=== PATIENT | male | born 1970 ===

== ENCOUNTER 2021-05-29 14:01 | Emergency (ER) | payer SELFPAY ==
[2021-05-29 14:16] VITALS: BP 109/74; PULSE 92; RESP 18; TEMP 36.7; O2SAT 98
--- NOTE | 2021-05-29 16:08 | PC.NURSE ---
pt was no answer when attempting to bring back to room
--- NOTE | 2021-05-29 16:54 | PC.NURSE ---
pt called for room, not in lobby
== END 2021-05-30 03:39 | disposition left against medical advice (07) ==
LOC: ANHED 17:07
DX: R51.9 Headache, unspecified (principal)
CPT/HCPCS: 99199